=== PATIENT | male | born 1995 | race Caucasian/White ===

== ENCOUNTER 2023-06-22 06:47 | Emergency (ER) | payer OTHER ==
[~2023-06-22] VITALS: Ht 180.3 cm; Wt 74.7 kg
[2023-06-22] MEDS: NS 1,000 ML IV ONE (08:16)
[2023-06-22] MEDS: ONDANSETRON 4MG 2ML VIAL IV ONE (08:16)
[2023-06-22 08:32] LABS: BASO % 0.2 % (0.0-1.0); EOS % 0.2 % (0.0-3.0); HEMATOCRIT 47.9 % (42.0-52.0); HEMOGLOBIN 16.7 g/dl (13.5-17.5); LYMPH # 0.4 10^3/uL (1.5-5.0); LYMPH % 2.7 % (24.0-44.0); MEAN CORPUSCULAR HEMOGLOBIN 30.8 pg (27.0-33.0); MEAN CORPUSCULAR HGB CONC 34.9 g/dl (32.0-36.5); MEAN CORPUSCULAR VOLUME 88.2 fl (80.0-96.0); MONO # 0.3 10^3/uL (0.0-0.8); MONO % 2.4 % (2.0-8.0); NEUTROPHILS # 12.6 10^3/uL (1.5-8.5); PLATELET COUNT, AUTOMATED 264 10^3/uL (150-450); RED BLOOD COUNT 5.43 10^6/uL (4.30-6.10); WHITE BLOOD COUNT 13.5 10^3/uL (4.0-10.0)
[2023-06-22 08:40] LABS: BLOOD UREA NITROGEN 22 MG/DL (9-23); CALCIUM LEVEL 9.5 MG/DL (8.5-10.1); CARBON DIOXIDE LEVEL 28 MMOL/L (20-31); CHLORIDE LEVEL 105 MMOL/L (98-107); CREATININE FOR GFR 0.89 MG/DL (0.70-1.30); GLOMERULAR FILTRATION RATE > 60.0 (>60); GLUCOSE, FASTING 118 MG/DL (60-100); POTASSIUM SERUM 4.4 MMOL/L (3.5-5.1); SODIUM LEVEL 139 MMOL/L (136-145)
[2023-06-22 09:06] LABS: RSV AMPLIFICATION NEGATIVE (NEGATIVE)
[2023-06-22] MEDS ORDERED: ONDA4TAB6 PO (09:54)
[2023-06-22 10:02] VITALS: BP 105/58; TEMP 98.8; O2SAT 98
== END 2023-06-22 10:08 | disposition home or self-care (01) ==
LOC: M ED 06:47
DX: R11.10 Vomiting, unspecified (principal); Z79.899 Other long term (current) drug therapy
CPT/HCPCS: 80048; 85025; 87631; 96361; 96374; 99284; J2405